=== PATIENT | male | born 1945 | race Caucasian/White ===

== ENCOUNTER → 2019-07-02 07:52 | Outpatient (CLI) | payer MEDICARE, SELFPAY ==
--- NOTE | 2019-07-02 | DI.ECHO.S_ITS ---
[facility] +---------+ : : [address] : [address] : : : : [id number] : : : : Phone: [phone]+ Echocardiogram Report + + :Name: ALLEN GUERRA Study Date: 07/02/2019 Height: 69 in : :[facility] Weight: 162 lb : : Gender: Male BSA: 1.9 m2 : :: 1945 Age: 74 yrs BP: 152/84 mmHg: :Reason For Study: atherosclerotic heart disease : :Ordering Physician: Dr. 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 There is a probable relaxation abnormality with normal filling pressures. The right ventricle grossly appears normal in size and systolic function. CVP is likely 3 mmHg. Both atria are normal in size. There is mild mitral and aortic valve regurgitation but no other significant functional abnormality. The ascending aorta is at the upper limits of normal in size. Patient was in sinus rhythm with frequent PACs during the study. Procedure: A two-dimensional transthoracic echocardiogram with color flow and Doppler was performed. A contrast injection of Definity was performed to improve assessment of LV function. The study quality was technically difficult. There is no prior echocardiogram noted for this patient. Patient denied any symptoms after the used of Definity. The apical views were difficult to obtain and are suboptimal in quality. Left Ventricle: There is normal left ventricular wall thickness. The left ventricle is mildly dilated. Left ventricular systolic function is mild to moderately reduced. The ejection fraction is estimated to be 40-45%. There is borderline global hypokinesis with akinesis and increased echogenicity of the interventricular septum, consistent with previous infarction with the ejection fraction grossly estimated to be 40 to 45%. Diastolic parameters suggest a relaxation abnormality of the left ventricle, consistent with probable normal filling pressures. Right Ventricle: The right ventricle is not well visualized. The right ventricle grossly appears normal in size with probable normal systolic function. Atria: Both atria are normal in size. There is no Doppler evidence for an interatrial shunt. Mitral Valve: The mitral valve leaflets appear borderline thickened, but open well. There is mild mitral regurgitation. Aortic Valve: The aortic valve is trileaflet. The aortic valve opens well. The aortic valve is slightly calcified. There is no aortic valve stenosis. There is mild aortic regurgitation. Tricuspid Valve: The tricuspid valve is not well visualized, but is grossly normal. There is trace tricuspid regurgitation. Pulmonary artery pressures cannot be estimated because of the lack of a measurable TR jet velocity but the IVC suggests a CVP of around 3 mmHg. Pulmonic Valve: The pulmonic valve is not well seen, but is grossly normal. There is no pulmonic valvular regurgitation. There is no other significant valvular heart disease. Great Vessels: The aortic root is normal size. The ascending aorta is at the upper limits of normal in size. The IVC is of normal diameter and collapses greater than 50% with a sniff. This suggests a low right atrial pressure of 3 mm Hg. Pericardium/ Pleura There is no pericardial effusion. There has been no significant change since the previous study. MMode/2D Measurements & Calculations LVIDd: 6.1 cm LVOT diam: 2.1 cm LVIDs: 4.9 cm Ao root diam: 3.2 cm FS: 19.5 % asc Aorta Diam: 3.4 cm EPSS: 2.0 cm Ao Arch Diam (Prox Trans): 2.8 cm IVSd: 0.50 cm LVPWd: 0.95 cm LV kaplan. diameter/BSA (cm/m^2): 3.2 LV sys. diameter/BSA (cm/m^2): 2.6 LA A2 area: 15.3 cm2 RA long axis: 5.0 cm LA A4 area: 18.6 cm2 RA area: 16.9 cm2 LA length (vol): 4.9 cm RA vol: 48.1 ml LA vol: 49.3 ml RA : 25.5 ml/m2 LA vol index: 26.1 ml/m2 IVC diam: 1.9 cm TAPSE: 2.2 cm Doppler Measurements & Calculations Ao V2 max: 148.5 cm/sec LVOT Max Fracisco: 101.1 cm/sec Ao V2 mean: 92.7 cm/sec LV V1 max P.2 mmHg Ao max P.0 mmHg LV V1 VTI: 20.9 cm Ao mean P.2 mmHg KYMBERLY(I,D): 2.8 cm2 Ao V2 VTI: 26.7 cm KYMBERLY(V,D): 2.4 cm2 sev ratio: 0.78 KYMBERLY indexed to BSA (cm^2/m^2): 1.5 MV E max fracisco: 55.3 cm/sec TR max fracisco: 219.2 cm/sec MV A max fracisco: 98.0 cm/sec TR max P.2 mmHg MV E/A: 0.56 PA V2 max: 112.1 cm/sec Med Peak E' Fracisco: 4.0 cm/sec PA V2 mean: 79.4 cm/sec E/E' med: 13.8 PA mean P.8 mmHg MV dec time: 0.32 sec PA pr(Accel): 52.0 mmHg SV(LVOT): 74.4 ml Reading Physician:VIKRAM
== END ==
PROVIDERS: Family Provider Internal Medicine; PCP Internal Medicine; Referring Provider Internal Medicine; Visit Provider Internal Medicine
DX: I08.0 Rheumatic disorders of both mitral and aortic valves (principal); I25.10 Atherosclerotic heart disease of native coronary artery without angina pectoris
CPT/HCPCS: 93306; Q9957

== ENCOUNTER → 2019-07-22 06:50 | Outpatient (CLI) | payer MEDICARE, SELFPAY ==
[2019-07-22 08:18] LABS: Add Manual Diff / Slide Review NO; Basophils Absolute Auto 0 /uL (0-100); Basophils Percent Auto 0.6 % (0-2); Eosinophils Absolute Auto 100 /uL (0-450); Eosinophils Percent Auto 2.1 % (2-4); Hematocrit 38.2 % (41-53); Hemoglobin 12.8 g/dL (13.5-17.5); Lymphocytes Absolute Auto 1500 /uL (1100-4500); Lymphocytes Percent Auto 28.2 % (25-40); Mean Corpuscular HGB Conc 33.5 % (30-36); Mean Corpuscular Hemoglobin 31.2 PG (26-34); Mean Corpuscular Volume 93.2 fL (80-100); Monocytes Absolute Auto 300 /uL (0-900); Monocytes Percent Auto 5.8 % (3-14); Neutrophils Absolute Auto 3400 /uL (1500-7000); Neutrophils Percent Auto 63.3 % (50-75); Platelet Count 227 X10^3/uL (150-400); Red Blood Cell Count 4.09 X10^6/uL (4.5-5.9); Red Cell Distribution Width 16.3 % (11.6-14.8); White Blood Cell Count 5.4 X10^3/uL (4.5-11.0)
[2019-07-22 09:00] LABS: Aspartate Aminotransferase 27 IU/L (17-59); BUN Creatinine Ratio 16.2 (6-22); Blood Urea Nitrogen 17 mg/dL (9-20); Carbon Dioxide 29 mmol/L (22-32); Chloride 100 mmol/L (98-107); Cholesterol 205 mg/dL (140-199); Estimated Glomerular Filt Rate > 60.0 mL/min (>60); Glucose 112 mg/dL (80-110); HDL Cholesterol 44 mg/dL (40-60); HEMOLYSIS < 15 (0-50); LDL Cholesterol Calculated 126 mg/dL (<100); Potassium 4.8 mmol/L (3.4-5.1); Sodium 137 mmol/L (137-145); Triglycerides 176 mg/dL (35-150)
[2019-07-22 09:23] LABS: Prostate Specific Antigen 0.718 ng/mL (0.10-4.00)
== END ==
PROVIDERS: Family Provider Internal Medicine; PCP Internal Medicine; Referring Provider Internal Medicine; Visit Provider Internal Medicine
DX: K51.919 Ulcerative colitis, unspecified with unspecified complications (principal); I10 Essential (primary) hypertension; E78.2 Mixed hyperlipidemia; N40.0 Benign prostatic hyperplasia without lower urinary tract symptoms
CPT/HCPCS: 36415; 80048; 80061; 84153; 84450; 85025

== ENCOUNTER → 2019-11-09 08:18 | Outpatient (CLI) | payer MEDICARE, SELFPAY ==
[2019-11-10 13:46] LABS: COVID19 Sendout Not Detected (Not Detect)
== END ==
PROVIDERS: Family Provider Internal Medicine; PCP Internal Medicine; Visit Provider Physician Assistant
DX: Z11.59 Encounter for screening for other viral diseases (principal)
CPT/HCPCS: 87635

== ENCOUNTER 2019-11-12 07:38 | Day surgery (SDC) | payer MEDICARE, SELFPAY ==
[2019-11-12] VITALS (7 sets, daily range): BP systolic 116–135; BP diastolic 55–74; PULSE 53–66; RESP 13–20; TEMP 36.2–36.8; O2SAT 95–98; BMI 23.1
--- NOTE | 2019-11-12 | PATH_ITS ---
[facility] Accession Number: [id number] . 01 Material submitted: . PART A: colon - RIGHT COLON MULTIPLE BIOPSY PART B: colon - TRANSVERSE COLON POLYP PART C: colon - TRANSVERSE COLON MULTIPLE BIOPSY PART D: colon - LEFT COLON MULTIPLE BIOPSY . 01 Clinical history: . B: POLYP X2 . 02 Diagnosis: A., C.-D. Right Colon, Transverse Colon, Left Colon, Multiple Biopsies: Colonic mucosa with no diagnostic abnormality. Negative for active, chronic, and microscopic colitis. Negative for dysplasia and malignancy. . B. Transverse Colon, Polyps, Biopsies: Tubular adenomas. BFI 11/14/2019 1141 Local . 02 Electronically signed: . Lynda Dupont MD, Pathologist NPI- [id number] . 01 Gross description: . A. Received in formalin, labeled right colon, and consists of multiple craig fragments of soft tissue measuring 0.8 x 0.7 x 0.2 cm in aggregate. The specimen is entirely submitted in cassette A1. B. Received in formalin, labeled transverse colon polyp x2, and consists of two carig-pink fragments of soft tissue measuring 0.4 x 0.3 x 0.2 cm in aggregate. The specimen is entirely submitted in cassette B1. C. Received in formalin, labeled transverse colon, and consists of six craig fragments of soft tissue measuring 1.0 x 0.7 x 0.2 cm in aggregate. The specimen is entirely submitted in cassette C1. D. Received in formalin, labeled left colon, and consists of multiple craig fragments of soft tissue measuring 1.0 x 0.7 x 0.2 cm in aggregate. The specimen is entirely submitted in cassette D1. (EA:[id number]) /MRV 11/13/2019 1500 Local . 02 Pathologist provided ICD-10: D12.3 . 02 CPT . 677026, 135853, [id number], [id number] Performed at: [facility] [address] [id number] MD Samuel Jackson MD Phone: [phone] Performed at: [id number] [place], [place] [id number] MD Lynda Dupont MD Phone: [phone]
--- NOTE | 2019-11-12 08:47 | PM.HP.1 ---
History of Present Illness History of Present Illness Date Patient Seen: 11/12/19 Chief complaint: SDC Narrative: UC, screening Patient History Family & Social History Social History: household members spouse Tobacco & Substance use: Smoking Status Never smoker alcohol intake current alcohol intake frequency holiday/special occasion Substance Use Type does not use Meds Home Medications and Allergies Home Medications Medication Instructions Recorded Confirmed Type allopurinol 200 mg PO DAILY 11/12/19 11/12/19 History aspirin 81 mg PO DAILY 11/12/19 11/12/19 History latanoprost 1 drp EYE-BOTH DAILY 11/12/19 11/12/19 History ramipril 2.5 mg PO DAILY 11/12/19 11/12/19 History simvastatin 20 mg PO BEDTIME 11/12/19 11/12/19 History sulfasalazine 500 mg PO QID 11/12/19 11/12/19 History timolol maleate 1 drp EYE-BOTH DAILY 11/12/19 11/12/19 History Allergies Allergy/AdvReac Type Severity Reaction Status Date / Time No Known Drug Allergies Allergy Verified 11/12/19 08:13 Exam Vital Signs (past 8 hours): - 11/12/19 08:14 Temperature 97.3 F L Pulse Rate 56 L Respiratory Rate 16 Blood Pressure 135/64 Pulse Oximetry 98 Oxygen Delivery Method Room Air Narrative Exam Narrative: Oropharynx free of lesions Chest clear to auscultation percussion Cardiac exam reveals no S3 or murmur Assessment & Plan Assessment & Plan narrative: History of ulcerative colitis now under control. Need for screening colonoscopy with multiple biopsies. Risks, benefits, alternatives have been explained.
[2019-11-12] MEDS: fentaNYL 250 MCG/5 ML INJ IV (08:49)
[2019-11-12] MEDS: MIDAZOLAM 5 MG/5 ML VIAL IV (08:49)
--- NOTE | 2019-11-12 08:49 | P.OP.ENDO_ITS ---
Operative Date/Time/Diagnoses Date of procedure: 11/12/19 Pre-op diagnosis: See indication and findings Procedure & Clinicians Study performed: Colonoscopy Same procedure as scheduled: Yes Indications: Ulcerative colitis need for screening Surgeon: Shamika Mancuso Procedure Notes Procedure in detail: After informed consent was obtained the patient was placed in left lateral decubitus position. The video colonoscope was introduced the rectum slowly advanced to cecum. Preparation was good. On slow withdrawal mucosa was carefully examined. The scope was removed. The patient tolerated procedure well. Blood loss none Complications none Sedation Total sedation time 24 minutes Fentanyl 100 mg Versed 4 mg IV titration Findings 1. Essentially normal colonoscopy to cecum. There was a faint impression of decreased vascular pattern throughout but no param colitis. Multiple biopsies t aken 2/10 cm and placed in bottles in the right colon transverse colon left colon. 2. Two 3 mm polyps in the proximal transverse colon cold biopsied and removed completely Will be in touch about follow-up but will be in 2-3 years.
== END 2019-11-12 09:55 | disposition home or self-care (01) ==
PROVIDERS: Family Provider Internal Medicine; PCP Internal Medicine; Referring Provider Internal Medicine Gastroenterology; Visit Provider Internal Medicine Gastroenterology
PROC: 0DJD8ZZ Inspection of Lower Intestinal Tract, Via Natural or Artificial Opening Endoscopic (ICD-10-PCS; CPT 45378; principal; 2019-11-12 08:30)
DX: K51.919 Ulcerative colitis, unspecified with unspecified complications (principal); I48.92 Unspecified atrial flutter; Z79.82 Long term (current) use of aspirin; I25.10 Atherosclerotic heart disease of native coronary artery without angina pectoris; I10 Essential (primary) hypertension; E78.00 Pure hypercholesterolemia, unspecified; D12.3 Benign neoplasm of transverse colon
CPT/HCPCS: 45380; J2250; J3010

== ENCOUNTER → 2020-06-23 15:14 | Outpatient (ROUT) | payer MEDICARE, SELFPAY ==
[2020-06-23 15:30] LABS: Add Manual Diff / Slide Review NO; Basophils Absolute Auto 0 /uL (0-100); Basophils Percent Auto 0.4 % (0-2); Eosinophils Absolute Auto 100 /uL (0-450); Eosinophils Percent Auto 1.6 % (2-4); Hematocrit 37.6 % (41-53); Hemoglobin 12.6 g/dL (13.5-17.5); Lymphocytes Absolute Auto 1800 /uL (1100-4500); Lymphocytes Percent Auto 27.4 % (25-40); Mean Corpuscular HGB Conc 33.5 % (30-36); Mean Corpuscular Hemoglobin 31.4 PG (26-34); Mean Corpuscular Volume 93.6 fL (80-100); Monocytes Absolute Auto 400 /uL (0-900); Monocytes Percent Auto 6.3 % (3-14); Neutrophils Absolute Auto 4300 /uL (1500-7000); Neutrophils Percent Auto 64.3 % (50-75); Platelet Count 190 X10^3/uL (150-400); Red Blood Cell Count 4.02 X10^6/uL (4.5-5.9); Red Cell Distribution Width 14.4 % (11.6-14.8); White Blood Cell Count 6.6 X10^3/uL (4.5-11.0)
[2020-06-23 15:53] LABS: Aspartate Aminotransferase 30 IU/L (17-59); BUN Creatinine Ratio 19.2 (6-22); Blood Urea Nitrogen 20 mg/dL (9-20); Calcium 9.9 mg/dL (8.4-10.2); Carbon Dioxide 27 mmol/L (22-32); Chloride 101 mmol/L (98-107); Cholesterol 156 mg/dL (140-199); Estimated Glomerular Filt Rate > 60.0 mL/min (>60); Glucose 85 mg/dL (80-110); HDL Cholesterol 49 mg/dL (40-60); HEMOLYSIS < 15 (0-50); LDL Cholesterol Calculated 71 mg/dL (<100); Potassium 4.1 mmol/L (3.4-5.1); Sodium 136 mmol/L (137-145); Triglycerides 180 mg/dL (35-150); Uric Acid 5.5 mg/dL (3.5-8.5)
[2020-06-23 16:15] LABS: Prostate Specific Antigen 0.823 ng/mL (0.10-4.00)
== END ==
PROVIDERS: Family Provider Internal Medicine; PCP Internal Medicine; Visit Provider Internal Medicine
DX: I10 Essential (primary) hypertension (principal); E78.2 Mixed hyperlipidemia; N40.0 Benign prostatic hyperplasia without lower urinary tract symptoms
CPT/HCPCS: 80048; 80061; 84153; 84450; 84550; 85025

== ENCOUNTER → 2021-12-08 09:03 | Outpatient (CLI) | payer MEDICARE, SELFPAY ==
[2021-12-08 12:04] LABS: Alanine Aminotransferase 33 IU/L (<50); Albumin 4.5 g/dL (3.5-5.0); Albumin Globulin Ratio 1.4 (1.0-2.8); Alkaline Phosphatase 71 U/L (38-126); Aspartate Aminotransferase 32 IU/L (17-59); BUN Creatinine Ratio 18.4 (6-22); Bilirubin Total 0.6 mg/dL (0.2-1.3); Blood Urea Nitrogen 19 mg/dL (9-20); Calcium 9.6 mg/dL (8.4-10.2); Carbon Dioxide 31 mmol/L (22-32); Chloride 99 mmol/L (98-107); Cholesterol 156 mg/dL (140-199); Estimated Glomerular Filt Rate > 60 mL/min (>60); Globulin 3.2 g/dL (1.7-4.1); Glucose 84 mg/dL (80-110); HDL Cholesterol 48 mg/dL (40-60); HEMOLYSIS < 15 (0-50); LDL Cholesterol Calculated 75 mg/dL (<100); Potassium 4.2 mmol/L (3.4-5.1); Sodium 139 mmol/L (137-145); Total Protein 7.7 g/dL (6.3-8.2); Triglycerides 164 mg/dL (35-150); Uric Acid 5.5 mg/dL (3.5-8.5)
[2021-12-08 14:07] LABS: Hematocrit 38.4 % (41-53); Hemoglobin 12.9 g/dL (13.5-17.5); Mean Corpuscular HGB Conc 33.6 % (30-36); Mean Corpuscular Hemoglobin 31.7 PG (26-34); Mean Corpuscular Volume 94.4 fL (80-100); Platelet Count 184 X10^3/uL (150-400); Red Blood Cell Count 4.07 X10^6/uL (4.5-5.9); Red Cell Distribution Width 14.2 % (11.6-14.8); White Blood Cell Count 4.8 X10^3/uL (4.5-11.0)
== END ==
PROVIDERS: Family Provider Internal Medicine; PCP Internal Medicine; Referring Provider Internal Medicine; Visit Provider Internal Medicine
DX: E78.2 Mixed hyperlipidemia (principal); N40.0 Benign prostatic hyperplasia without lower urinary tract symptoms; I10 Essential (primary) hypertension; I25.10 Atherosclerotic heart disease of native coronary artery without angina pectoris; I48.3 Typical atrial flutter; K51.919 Ulcerative colitis, unspecified with unspecified complications; M1A.9XX0 Chronic gout, unspecified, without tophus (tophi)
CPT/HCPCS: 36415; 80053; 80061; 84153; 84443; 84550; 85027

== ENCOUNTER → 2022-12-11 08:28 | Outpatient (CLI) | payer MEDICARE, SELFPAY ==
[2022-12-11 09:52] LABS: Hematocrit 38.5 % (41-53); Hemoglobin 13.1 g/dL (13.5-17.5); Mean Corpuscular HGB Conc 33.9 % (30-36); Mean Corpuscular Hemoglobin 32.2 PG (26-34); Mean Corpuscular Volume 95.1 fL (80-100); Platelet Count 172 X10^3/uL (150-400); Red Blood Cell Count 4.05 X10^6/uL (4.5-5.9); Red Cell Distribution Width 14.7 % (11.6-14.8); White Blood Cell Count 6.4 X10^3/uL (4.5-11.0)
[2022-12-11 10:01] LABS: Alanine Aminotransferase 28 IU/L (<50); Albumin 4.4 g/dL (3.5-5.0); Albumin Globulin Ratio 1.4 (1.0-2.8); Alkaline Phosphatase 58 U/L (38-126); Aspartate Aminotransferase 27 IU/L (17-59); BUN Creatinine Ratio 16.3 (6-22); Bilirubin Total 0.5 mg/dL (0.2-1.3); Blood Urea Nitrogen 17 mg/dL (9-20); Calcium 10.1 mg/dL (8.4-10.2); Carbon Dioxide 28 mmol/L (22-32); Chloride 101 mmol/L (98-107); Cholesterol 170 mg/dL (140-199); Estimated Glomerular Filt Rate > 60 mL/min (>60); Globulin 3.1 g/dL (1.7-4.1); Glucose 75 mg/dL (80-110); HDL Cholesterol 55 mg/dL (40-60); HEMOLYSIS < 15 (0-50); LDL Cholesterol Calculated 76 mg/dL (<100); Potassium 4.6 mmol/L (3.4-5.1); Sodium 139 mmol/L (137-145); Total Protein 7.5 g/dL (6.3-8.2); Triglycerides 194 mg/dL (35-150)
[2022-12-11 10:25] LABS: TSH w/ Reflex to FT4 3.23 uIU/mL (0.47-4.68)
[2022-12-11 10:28] LABS: Prostate Specific Antigen 1.04 ng/mL (0.10-4.00)
== END ==
PROVIDERS: Family Provider Internal Medicine; PCP Internal Medicine; Referring Provider Internal Medicine; Visit Provider Internal Medicine
DX: E78.2 Mixed hyperlipidemia (principal); N40.0 Benign prostatic hyperplasia without lower urinary tract symptoms; I10 Essential (primary) hypertension; K51.90 Ulcerative colitis, unspecified, without complications
CPT/HCPCS: 36415; 80053; 80061; 84153; 84443; 85027

== ENCOUNTER → 2023-12-13 08:43 | Outpatient (CLI) | payer MEDICARE, SELFPAY ==
[2023-12-13 09:09] LABS: Hematocrit 38.2 % (41-53); Hemoglobin 12.7 g/dL (13.5-17.5); Mean Corpuscular HGB Conc 33.2 % (30-36); Mean Corpuscular Hemoglobin 32.4 PG (26-34); Mean Corpuscular Volume 97.5 fL (80-100); Platelet Count 201 X10^3/uL (150-400); Red Blood Cell Count 3.92 X10^6/uL (4.5-5.9); Red Cell Distribution Width 14.1 % (11.6-14.8); White Blood Cell Count 5.2 X10^3/uL (4.5-11.0)
[2023-12-13 09:38] LABS: HEMOLYSIS < 15 (0-50); Iron 107 ug/dL (49-181)
[2023-12-13 09:48] LABS: Alanine Aminotransferase 26 IU/L (<50); Albumin 4.5 g/dL (3.5-5.0); Albumin Globulin Ratio 1.5 (1.0-2.8); Alkaline Phosphatase 73 U/L (38-126); Aspartate Aminotransferase 31 IU/L (17-59); Bilirubin Total 0.7 mg/dL (0.2-1.3); Blood Urea Nitrogen 17 mg/dL (9-20); Calcium 9.8 mg/dL (8.4-10.2); Carbon Dioxide 28 mmol/L (22-32); Chloride 102 mmol/L (98-107); Cholesterol 167 mg/dL (140-199); Estimated Glomerular Filt Rate > 60 mL/min (>60); Glucose 103 mg/dL (80-110); HDL Cholesterol 52 mg/dL (40-60); HEMOLYSIS < 15 (0-50); LDL Cholesterol Calculated 78 mg/dL (<100); Percent Iron Saturation 34 % (20-50); Sodium 139 mmol/L (137-145); Total Iron Binding Capacity 319 ug/dL (261-462); Total Protein 7.5 g/dL (6.3-8.2); Triglycerides 183 mg/dL (35-150)
[2023-12-13 09:52] LABS: Transferrin 254 mg/dL (206-381)
[2023-12-13 10:15] LABS: Prostate Specific Antigen 1.63 ng/mL (0.10-4.00)
[2023-12-13 10:19] LABS: Ferritin 67 ng/mL (18-464)
== END ==
PROVIDERS: Family Provider Internal Medicine; PCP Internal Medicine; Referring Provider Internal Medicine; Visit Provider Internal Medicine
DX: K51.90 Ulcerative colitis, unspecified, without complications (principal); E78.2 Mixed hyperlipidemia; N40.0 Benign prostatic hyperplasia without lower urinary tract symptoms; D64.9 Anemia, unspecified; I25.10 Atherosclerotic heart disease of native coronary artery without angina pectoris; I48.92 Unspecified atrial flutter; R00.1 Bradycardia, unspecified; I10 Essential (primary) hypertension; M1A.9XX0 Chronic gout, unspecified, without tophus (tophi); J30.9 Allergic rhinitis, unspecified; I73.00 Raynaud's syndrome without gangrene; H40.009 Preglaucoma, unspecified, unspecified eye; K51.919 Ulcerative colitis, unspecified with unspecified complications
CPT/HCPCS: 36415; 80053; 80061; 82728; 83540; 83550; 84153; 85027

== ENCOUNTER → 2024-12-15 16:49 | Outpatient (CLI) | payer MEDICARE, SELFPAY ==
[2024-12-15 17:20] LABS: Hematocrit 37.3 % (41-53); Hemoglobin 12.6 g/dL (13.5-17.5); Mean Corpuscular HGB Conc 33.8 % (30-36); Mean Corpuscular Hemoglobin 32.2 PG (26-34); Mean Corpuscular Volume 95.3 fL (80-100); Platelet Count 191 X10^3/uL (150-400)
[2024-12-15 17:59] LABS: HEMOLYSIS < 15 (0-50); Iron 84 ug/dL (49-181)
[2024-12-15 18:01] LABS: Alanine Aminotransferase 24 IU/L (<50); Albumin 4.6 g/dL (3.5-5.0); Albumin Globulin Ratio 1.5 (1.0-2.8); Alkaline Phosphatase 68 U/L (38-126); Blood Urea Nitrogen 18 mg/dL (9-20); Calcium 9.4 mg/dL (8.4-10.2); Carbon Dioxide 26 mmol/L (22-32); Chloride 102 mmol/L (98-107); Cholesterol 132 mg/dL (140-199); Estimated Glomerular Filt Rate > 60 mL/min (>60); Globulin 3.0 g/dL (1.7-4.1); Glucose 92 mg/dL (70-99); HDL Cholesterol 46 mg/dL (40-60); HEMOLYSIS < 15 (0-50); Potassium 4.0 mmol/L (3.4-5.1); Sodium 139 mmol/L (137-145); Total Protein 7.6 g/dL (6.3-8.2); Triglycerides 292 mg/dL (35-150); Uric Acid 6.1 mg/dL (3.5-8.5)
[2024-12-15 18:09] LABS: Percent Iron Saturation 26 % (20-50); Total Iron Binding Capacity 321 ug/dL (261-462); Transferrin 275 mg/dL (206-381)
[2024-12-15 18:31] LABS: Prostate Specific Antigen 1.79 ng/mL (0.10-4.00)
[2024-12-15 18:36] LABS: Ferritin 59 ng/mL (18-464)
== END ==
PROVIDERS: PCP Internal Medicine; Referring Provider Internal Medicine; Visit Provider Internal Medicine
DX: D50.9 Iron deficiency anemia, unspecified (principal); E78.2 Mixed hyperlipidemia; N40.0 Benign prostatic hyperplasia without lower urinary tract symptoms; M1A.9XX0 Chronic gout, unspecified, without tophus (tophi); E61.1 Iron deficiency
CPT/HCPCS: 36415; 80053; 80061; 82728; 83540; 83550; 84153; 84550; 85027